=== PATIENT | male | born 1980 | race African-American/Black ===

== ENCOUNTER 2017-12-19 11:32 | Emergency (ER) | payer SELFPAY ==
--- NOTE | 2017-12-19 11:38 | ED NECK/BACK PAIN COMPLAINT ---
History of Present Illness General Chief Complaint: Neuro Symptoms/ Deficit Stated Complaint: BIBA, STROKE ALERT Source: patient, EMS Exam Limitations: clinical condition Vital Signs & Intake/Output Vital Signs & Intake/Output PT REFUSED Triage Nurses Notes Reviewed? yes HPI: Patient was traveling from [place] up on the train. Approximately 30 minutes prior to arrival patient had a sudden onset of diffuse body and back pain consistent with his sickle cell crisis and difficulty speaking as well as left-sided paralysis. Patient got off the train and EMS was contacted. Patient is very difficult to understand as he is slurring his words however EMS did get out that he did have a stroke in the past and had TPA approximately one year ago. Patient complaining of severe body pain. Patient is unable to explain what the pain is. Patient was taken immediately to CAT scan. Patient refuses to lay down secondary to the pain. I informed the patient that we would give him a shot of morphine. Patient's speech cleared up immediately as he said that he is allergic to morphine and that he gets 4 mg of Dilaudid in his muscle in his arm and 50 mg of Benadryl and his hip muscle. Patient then went on to state that he was not having the CAT scan until we gave him that shot. Patient's speech is now clear as the patient is alert and oriented. Patient again advised of the importance of obtaining the CAT scan is currently is possible as if he is having a stroke in time is of the utmost importance for treatment. Patient again refused to have a CAT scan until he got the shot. Past History Travel History Traveled to [facility] past 21 day No Medical History Any Pertinent Medical History? see below for history Neurological: CVA Blood Disorders: sickle cell disease Surgical History Surgical History: non-contributory Psychosocial History Tobacco Use: Refused to answer ETOH Use: PT REFUSED TO ANSWER Illicit Drug Use: PT REFUSED TO ANSWER Family History Hx Contributory? No Review of Systems Review of Systems Constitutional: Reports: no symptoms. Eyes: Reports: no symptoms. Ears, Nose, Throat, Mouth: Reports: no symptoms. Respiratory: Reports: no symptoms. Cardiovascular: Reports: no symptoms. Gastrointestinal/Abdominal: Reports: no symptoms. Musculoskeletal: Reports: see HPI, back pain. Skin: Reports: no symptoms. Neurological/Psychological: Reports: see HPI. All Other Systems: Reviewed and Negative Physical Exam Physical Exam General Appearance: well developed/nourished, alert, awake, anxious Head: atraumatic Eyes: Bilateral: PERRL, EOMI. Neck: normal inspection, supple Respiratory: normal breath sounds, chest non-tender, no respiratory distress, lungs clear Cardiovascular: regular rate/rhythm, normal peripheral pulses Comments: Unable to perform further physical as the patient walked out of the emergency department. Unable to complete the NHISS due to the patient walking out. Core Measures CVA/TIA Diagnosis: Yes Date Last Known Well: 12/19/17 Time Last Known Well: 1100 Symptom Start Date: 12/19/17 Symptom Start Time: 1100 Reason tPA not ordered Medication Refused Progress Differential Diagnosis: CVA, SICKLE CRISIS, ANEMIA, ELECTROLYTE ABNORMALITY Plan of Care: Orders Procedure Date/time Status EKG 12/19 115 Active TROPONIN LEVEL 12/19 1137 Active PARTIAL THROMBOPLASTIN TIME 12/19 1137 Active PROTHROMBIN TIME 12/19 1137 Active COMPREHENSIVE METABOLIC PANEL 12/19 1137 Active CBC WITHOUT DIFFERENTIAL 12/19 1137 Active Diagnostic Imaging: Viewed by Me: CT Scan. Discussed w/RAD: CT Scan. Radiology Impression: PATIENT: RACHID WASHINGTON PRESENT AGE : 37 PATIENT ACCOUNT NO: [id number] : 81 LOCATION: [facility] ORDERING PHYSICIAN: Stephen Skaggs MD SERVICE DATE: 12/19/17 EXAM TYPE: CAT - CT HEAD WO IV CONTRAST EXAMINATION: CT HEAD WITHOUT CONTRAST CLINICAL INFORMATION: Slurred speech. Stroke alert. COMPARISON: None. TECHNIQUE: Contiguous axial imaging was performed from the skull base to vertex without intravenous administration of contrast. Study is mild to moderately degraded by motion and beam hardening artifact. DLP: 695 mGy-cm. FINDINGS: There is no intracranial hemorrhage, large infarction, or mass lesion. There is no extra- axial collection. There is no dense vessel sign, obscuration of the basal ganglia, or insular ribbon sign. The ventricles are normal in size and configuration without evidence of hydrocephalus. The paranasal sinuses are clear. The mastoids and middle ear cavities are clear. IMPRESSION: No acute intracranial abnormality. This critical result was discussed with Stephen Skaggs on 12/19/2017 12:10 PM, and it was ascertained that the content and urgency of the report was understood at the time of direct communication. 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 <Electronically signed in Other Vendor System> SIGNED BY: Phil Dunn MD 12/19/17 1212 Comments: Patient returned from CAT scan and then refused to have any blood work drawn or IV inserted until he got another shot. Patient currently stating that he routinely gets 8 mg of IM Dilaudid whenever he goes to the emergency department as well as the 50 mg of Benadryl. Patient advised that we really need to make sure that everything is okay and that we will treat his pain however revealing need to obtain the blood work and obtain IV access. Patient again refused any blood work or IV stating that he has not taken IV pain medication and he will take pain medication in his arm and that we cannot do anything until we get from the pain medication. Patient advised that there are protocols that we need to adhere to and that we will give him more pain medications once we obtain the blood work and obtain IV access. Patient then walked out of the emergency department. Departure Departure Disposition: ER WALKOUT Condition: Stable Clinical Impression Primary Impression: Sickle cell crisis Secondary Impressions: CVA (cerebral vascular accident) Departure Forms: Customer Survey General Discharge Information
--- NOTE | 2017-12-19 12:12 | CT SCAN REPORT ---
EXAMINATION: CT HEAD WITHOUT CONTRAST CLINICAL INFORMATION: Slurred speech. Stroke alert. COMPARISON: None. TECHNIQUE: Contiguous axial imaging was performed from the skull base to vertex without intravenous administration of contrast. Study is mild to moderately degraded by motion and beam hardening artifact. DLP: 695 mGy-cm. FINDINGS: There is no intracranial hemorrhage, large infarction, or mass lesion. There is no extra-axial collection. There is no dense vessel sign, obscuration of the basal ganglia, or insular ribbon sign. The ventricles are normal in size and configuration without evidence of hydrocephalus. The paranasal sinuses are clear. The mastoids and middle ear cavities are clear. IMPRESSION: No acute intracranial abnormality. This critical result was discussed with Stephen Skaggs on 12/19/2017 12:10 PM, and it was ascertained that the content and urgency of the report was understood at the time of direct communication.
== END 2017-12-19 12:03 | disposition left against medical advice (07) ==
LOC: ERH 11:32 → EDBD 11:32 → ERH 11:40
DX: I63.9 Cerebral infarction, unspecified (principal); D57.00 Hb-SS disease with crisis, unspecified
CPT/HCPCS: 96372; J1200